=== PATIENT | female | born 1980 | race Caucasian/White ===

== ENCOUNTER 2018-11-29 12:33 | Day surgery (SDC) | payer OTHER ==
[~2018-11-29] VITALS: Ht 165.1 cm; Wt 76.7 kg
[2018-11-29] MEDS ORDERED: PRENATAL TABLE1 EAC4 (13:41)
--- NOTE | 2018-11-29 13:42 | NUR ---
PACIENTE CON REFERIDO MEDICO REFIERE [facility] DFOS JACOBO EMBARAZADA CON 9 SEMANS .
--- NOTE | 2018-11-29 14:49 | NUR ---
PTE EVALUADA OR L ADRA TACOS QUIEN ORDE[place]. MS K RIEVRA OROIENTA SOBRE EL MISMO Y REALIZA PRUEBAS DE LABORATORIO ADAN ORDEN MEDICA Y SIGUIENDO MEDIDAS ASEPTICAS.
== END 2018-11-30 02:05 | disposition home or self-care (01) ==
LOC: ER 12:33 → CIR.AMB 19:42 → O/R 20:34 → CIR.AMB 20:34 → O/R 23:00 → CIR.AMB 11-30 02:05
DX: O03.4 Incomplete spontaneous abortion without complication (principal)